=== PATIENT | female | born 1940 | race Caucasian/White ===

== ENCOUNTER → 2017-10-03 | Day surgery (SDC) | payer MEDICARE, BC ==
[2017-10-01 09:51] VITALS: BMI 28.8
[~2017-10-03] MED LIST: LACTATED RINGERS 1,000 ML IV SCH; LIDOCAINE 1% INJ 10MG/ML (20 ML MDV) ONE; PROPOFOL 10 MG/ML 20 ML VIAL IV ONE
[2017-10-03 08:13] VITALS: RESP 16; TEMP 97
--- NOTE | 2017-10-03 09:25 | P.GSHP ---
History of Present Illness H&P Date: 10/03/17 Chief Complaint: Dysphagia, GERD This a 77-year-old female who presents today for EGD. She's had complaints of dysphagia and GERD. Past Medical History Past Medical History: Atrial Fibrillation, Eye Disorder, GERD/Reflux, Hypertension, Osteoarthritis (OA) Additional Past Medical History / Comment(s): IBS, bilateral macular degeneration. History of Any Multi-Drug Resistant Organisms: None Reported Past Surgical History: Appendectomy, Back Surgery, Breast Surgery, Cholecystectomy, Hysterectomy, Orthopedic Surgery Additional Past Surgical History / Comment(s): ORIF LEFT ANKLE Past Anesthesia/Blood Transfusion Reactions: No Reported Reaction Past Psychological History: Anxiety Smoking Status: Former smoker Past Alcohol Use History: None Reported Additional Past Alcohol Use History / Comment(s): Quit smoking 50 yrs ago, smoked for 20 yrs. Past Drug Use History: None Reported - Past Family History Mother Family Medical History: Coronary Artery Disease (CAD) Brother(s) Family Medical History: Cancer Medications and Allergies Home Medications Medication Instructions Recorded Confirmed Type Apixaban [Eliquis] 5 mg PO BID 02/14/16 10/01/17 History C,E,Zinc,Copper 11/Qcunc4i/Lut 1 each PO DAILY 10/01/17 10/01/17 History [Ocuvite Adult 50 Plus Softgel] Cholecalciferol (Vitamin D3) 2,000 unit PO DAILY 10/01/17 10/01/17 History [Vitamin D3] Metoprolol Tartrate 25 mg PO BID 10/01/17 10/03/17 History Multivit-Min/Iron/Folic/Lutein 1 each PO DAILY 10/01/17 10/01/17 History [Centrum Silver Women Tablet] Omeprazole 20 mg PO BID 10/01/17 10/01/17 History Triamterene/Hydrochlorothiazid 1 each PO QAM 10/01/17 10/01/17 History [Triamterene-Hctz 37.5-25 mg Tb] Allergies Allergy/AdvReac Type Severity Reaction Status Date / Time meperidine HCl [From Demerol] Allergy Unknown Verified 10/03/17 08:08 ciprofloxacin AdvReac Nausea & Verified 10/03/17 08:08 Vomiting codeine AdvReac Nausea & Verified 10/03/17 08:08 Vomiting Surgical - Exam Vital Signs Temp Pulse Resp BP Pulse Ox 97.0 F L 84 16 169/94 97 10/03/17 08:12 10/03/17 08:12 10/03/17 08:12 10/03/17 08:12 10/03/17 08:12 - General well developed, no distress - Eyes PERRL - ENT normal pinna - Neck no masses - Respiratory normal expansion - Cardiovascular Rhythm: regular - Abdomen Abdomen: soft, non tender Assessment and Plan Assessment: GERD, dysphagia. We'll perform EGD
--- NOTE | 2017-10-03 09:43 | P.OP ---
Date of Procedure: 10/03/17 Preoperative Diagnosis: Dysphagia GERD Postoperative Diagnosis: Gastroparesis Mild antral gastritis Esophagitis Procedure(s) Performed: EGD Anesthesia: MAC Surgeon: Corbin Medrano Pathology: other (Antrum, esophagus) Condition: stable Disposition: PACU Description of Procedure: The patient's placed on the endoscopy table in the lateral position. She received IV sedation. The gastric was placed oropharynx and esophagus. Scope was then placed and stomach. There was a large amount of retained food in the stomach. Scope was then placed through the pylorus. The first and second portion of the duodenum appeared normal. Scope was then brought back the antrum and this was mildly inflamed. A biopsies performed. Scope was then retroflexed and the remainder of the stomach appeared normal. However there is a large amount of food in the fundus the stomach. There did not appear to be a significant hiatal hernia. The GE junction was at 39 cm. The distal esophagus was mildly inflamed a biopsies performed. The proximal esophagus appeared normal. Scope was withdrawn for patient.
[2017-10-03 10:07] VITALS: BP 136/80; PULSE 86
== END ==
LOC: ORWHC2ENDO 07:54
PROVIDERS: ATTEND Surgery
DX: K29.50 Unspecified chronic gastritis without bleeding (principal); K31.84 Gastroparesis; K21.0 Gastro-esophageal reflux disease with esophagitis; I48.91 Unspecified atrial fibrillation; H35.30 Unspecified macular degeneration; I10 Essential (primary) hypertension; M19.90 Unspecified osteoarthritis, unspecified site; K58.9 Irritable bowel syndrome, unspecified; F41.9 Anxiety disorder, unspecified; I25.10 Atherosclerotic heart disease of native coronary artery without angina pectoris; Z79.01 Long term (current) use of anticoagulants; Z79.899 Other long term (current) drug therapy; Z88.5 Allergy status to narcotic agent; Z87.891 Personal history of nicotine dependence
CPT/HCPCS: 88305; 43239; J2001; J2704

== ENCOUNTER → 2017-10-07 | Outpatient (CLI) | payer MEDICARE, BC ==
[2017-10-07 11:25] VITALS: RESP 18
--- NOTE | 2017-10-07 11:49 | FL ---
EXAMINATION TYPE: FL UGI DATE OF EXAM: 10/07/2017 COMPARISON: NONE HISTORY: 77-year-old female complains of dysphagia. Order history states gastroparesis. Patient with endoscopy performed 4 days ago, biopsies taken from the esophagus and gastric antrum. TECHNIQUE: A double contrast UGI study is performed. FINDINGS: During the initial swallows, there is incidental silent aspiration noted into the upper trachea. The esophagus has a normal course, caliber, and mucosa. There is mild tertiary peristaltic contractio ns. No fixed narrowing or mucosal lesion is seen. A small sliding hiatal hernia is noted on the supine views. The exam was prematurely terminated as the patient began complaining of hoarseness and a choking se nsation. The patient was monitored and observed by the radiology nurse and discharged from medical im aging with stable and normal vital signs. Patient declined ER evaluation. The limited LPO and supine views of the stomach show no gross abnormality. Suspect a small diverticul um of the second portion of the duodenum. IMPRESSION: 1. Incidental silent aspiration to the the level of the upper trachea. Consider speech pathology eval uation. 2. No stricture or mucosal lesion seen within the esophagus. 3. Small sliding hiatal hernia. 4. Note that the exam was prematurely terminated when the patient began complaining of hoarseness and a choking sensation. See above. 5. No obvious abnormality seen on the limited two views of the stomach.
[2017-10-07 13:56] VITALS: BP 144/88; PULSE 82
== END | disposition home or self-care (01) ==
LOC: RADFLMAIN 09:53
PROVIDERS: ATTEND Surgery
DX: K44.9 Diaphragmatic hernia without obstruction or gangrene (principal)
CPT/HCPCS: 74240

== ENCOUNTER → 2021-04-11 | Outpatient (CLI) | payer MEDICARE, BC ==
--- NOTE | 2021-04-12 09:31 | ECHOF ---
Referral Reason:M79.89 swelling of lower extremity MEASUREMENTS -------- HEIGHT: 162.6 cm WEIGHT: 76.2 kg BP: RVIDd: 2.5 cm (< 3.3) IVSd: 0.9 cm (0.6 - 1.1) LVIDd: 3.9 cm (3.9 - 5.3) LVPWd: 1.1 cm (0.6 - 1.1) IVSs: 1.3 cm LVIDs: 2.5 cm LVPWs: 1.4 cm LAESV Index (A-L): 45.71 ml/m Ao Diam: 2.8 cm (2.0 - 3.7) AV Cusp: 2.0 cm (1.5 - 2.6) LA Diam: 3.9 cm (2.7 - 3.8) MV EXCURSION: 19.089 mm (> 18.000) MV EF SLOPE: 113 mm/s (70 - 150) EPSS: 1.1 cm MV E Kali: 1.25 m/s MV DecT: 217 ms MV A Kali: 0.31 m/s MV E/A Ratio: 3.99 RAP: 5.00 mmHg RVSP: 41.00 mmHg FINDINGS -------- This was a technically good study. The left ventricular size is normal. There is mild concentric left ventricular hypertrophy. Overa ll left ventricular systolic function is low-normal with, an EF between 50 - 55 %. Increased LAP Gr apolinar 2 Diastolic Dysfunction. The right ventricle is normal in size. LA is severely dilated >40 ml/m2 RA appears enlarged. The aortic valve is trileaflet and appears structurally normal. The mitral valve is normal. Moderate mitral regurgitation is present. The tricuspid valve appears structurally normal. Mild tricuspid regurgitation present. There is m ild pulmonary hypertension. The right ventricular systolic pressure, as measured by Doppler, is 41. 00mmHg. There is no pulmonic regurgitation present. The aortic root size is normal. Normal inferior vena cava with normal inspiratory collapse consistent with estimated right atrial pre ssure of 5 mmHg. There is no pericardial effusion. CONCLUSIONS -------- 1. The left ventricular size is normal. 2. There is mild concentric left ventricular hypertrophy. 3. Overall left ventricular systolic function is low-normal with, an EF between 50 - 55 %. 4. Increased LAP Grade 2 Diastolic Dysfunction. 5. LA is severely dilated >40 ml/m2 6. Moderate mitral regurgitation is present. 7. Mild tricuspid regurgitation present. 8. There is mild pulmonary hypertension. 9. The right ventricular systolic pressure, as measured by Doppler, is 41.00mmHg. 10. There is no pericardial effusion. MICROSTRATEGY DEVELOPER: Cherise Wisdom RDCS
== END | disposition home or self-care (01) ==
LOC: RADECHMAIN 13:37
PROVIDERS: ATTEND Internal Medicine
DX: I08.1 Rheumatic disorders of both mitral and tricuspid valves (principal); I27.20 Pulmonary hypertension, unspecified
CPT/HCPCS: 93306

== ENCOUNTER → 2021-11-27 | Outpatient (CLI) | payer MEDICARE, BC ==
--- NOTE | 2021-11-27 15:20 | NM ---
EXAMINATION TYPE: NM parathyroid w/spect DATE OF EXAM: 11/27/2021 COMPARISON: None HISTORY: Hypercalcemia TECHNIQUE: Following administration of 24.8 mCi Tc99m Sestamibi. Anterior projection images of the neck and ches t were obtained 10 minutes and 3 hours post injection. SPECT images of the neck and chest were obtai lisa and reconstructed in three axes. FINDINGS: Parathyroid uptake: The two-hour delayed images demonstrate abnormal persistent uptake in the region of the thyroid bed greater on the left to suggest parathyroid adenoma. Normal uptake: There is physiological tracer uptake in the myocardium, liver, salivary glands, and th yroid gland. IMPRESSION: Bilateral residual radiotracer delayed imaging. Recommend correlation with ultrasound or CT neck to a ssess parathyroid adenoma
== END | disposition home or self-care (01) ==
LOC: RADNMMAIN 10:39
PROVIDERS: ATTEND Surgery
DX: D35.1 Benign neoplasm of parathyroid gland (principal)
CPT/HCPCS: 78071; A9500

== ENCOUNTER → 2021-12-04 | Outpatient (CLI) | payer MEDICARE, BC ==
--- NOTE | 2021-12-04 16:00 | US ---
EXAMINATION TYPE: US thyroid st tissue head/neck DATE OF EXAM: 12/04/2021 COMPARISON: NONE CLINICAL HISTORY: 81-year-old female D35.1 Benign neoplasm of parathyroid gland. TECHNIQUE: Multiple sonographic images of the thyroid gland are obtained. FINDINGS: GLAND SIZE: Right Lobe: 3.8 x 1.6 x 1.2 cm Overall Parenchyma: Mildly heterogenous Left Lobe: 4.0 x 1.3 x 1.6 cm Overall Parenchyma: Mildly heterogeneous Isthmus Thickness: 0.2 cm NODULES RIGHT: # of nodules measured on right: 0 LEFT: # of nodules measured on left: 2 1. 1.0 X 0.7 x 1.0 cm, posterior mid , solid or almost completely solid, mixed isoechoic and hypoec hoic nodule, which is wider than tall, with smooth margins, without echogenic foci. Prior size: no prior 2. 1.8 X 0.9 x 1.4 cm, lower , solid or almost completely solid, isoechoic nodule, which is wider than tall, with ill-defined margins, without echogenic foci. Prior size: no prior ISTHMUS: # of nodules measured in the isthmus: no Bilateral neck scanned: Small 8 x 8 x 5 mm lymph node adjacent to the left lobe of the thyroid gland. IMPRESSION: There are 2 solid thyroid nodules on the left. The smaller is a 1.0 cm TR4 nodule (FNA if it reaches 1.5 cm) and the larger is a 1.8 cm TR3 nodule (FNA if it reaches 2.5 cm). There is also a small 8 mm lymph node on the left adjacent to the thyroid gland.
== END | disposition home or self-care (01) ==
LOC: RADUSWWP 12:30
PROVIDERS: ATTEND Surgery
DX: E04.1 Nontoxic single thyroid nodule (principal)
CPT/HCPCS: 76536

== ENCOUNTER 2022-01-10 07:12 | Day surgery (SDC) | payer MEDICARE, BC ==
[2022-01-08 10:41] VITALS: BMI 27.1
[~2022-01-10 07:12] MED LIST changes: +ACETAMINOPHEN TAB 500 MG TAB PO PRN; +DEXAMETHASONE SOD PHOSPHATE 4 MG/ML 1 ML VIAL IV ONE; +HEPARIN SODIUM,PORCINE/PF 5,000 UNIT/0.5 ML SYRINGE SQ PRN; -LACTATED RINGERS 1,000 ML IV SCH; -LIDOCAINE 1% INJ 10MG/ML (20 ML MDV) ONE; +ONDANSETRON 4 MG/2 ML VIAL IVP ONE; -PROPOFOL 10 MG/ML 20 ML VIAL IV ONE; +Pre Op ABX Message 1 EACH MISC MISCELLANE ONE
[2022-01-10] MEDS: LACTATED RINGERS 1,000 ML IV SCH ×2 (08:12→20:39)
[2022-01-10] MEDS ORDERED: PROPOFOL 10 MG/ML 20 ML VIAL IV ONE (08:30)
[2022-01-10] MEDS ORDERED: hydrALAZINE HCL 20 MG/ML 1 ML VIAL ONE (08:30)
[2022-01-10] MEDS ORDERED: fentaNYL (PF) 50 MCG/ML 2 ML AMP ONE (08:30)
[2022-01-10] MEDS ORDERED: SUCCINYLCHOLINE CHLORIDE 200 MG/10 ML VIAL IV ONE (08:30)
[2022-01-10] MEDS ORDERED: LIDOCAINE 2% INJ 20 MG/ML (2 ML VIAL) ONE (08:30)
[2022-01-10] MEDS ORDERED: ePHEDrine 50 MG/ML 1 ML VIAL ONE (08:30)
[2022-01-10] MEDS ORDERED: SODIUM CHLORIDE 0.9% 50 ML with ceFAZolin 2,000 MG IV ONE ×2 (08:35)
[2022-01-10 08:36] LABS: Basophils % (A) 1 %; Eosinophils # (A) 0.1 k/uL (0-0.7); Eosinophils % (A) 1 %; HCT 44.5 % (34.0-46.0); HGB 14.9 gm/dL (11.4-16.0); Lymphocytes # (A) 1.5 k/uL (1.0-4.8); Lymphocytes % (A) 25 %; MCH 33.1 pg (25.0-35.0); MCHC 33.6 g/dL (31.0-37.0); MCV 98.5 fL (80.0-100.0); Mean Platelet Volume 7.9; Monocytes # (A) 0.4 k/uL (0-1.0); Monocytes % (A) 6 %; Neutrophils # (A) 3.7 k/uL (1.3-7.7); Neutrophils % (A) 65 %; Platelet Count 202 k/uL (150-450); RBC 4.52 m/uL (3.80-5.40); RDW 12.7 % (11.5-15.5); WBC 5.7 k/uL (3.8-10.6)
[2022-01-10 08:39] LABS: ALT 21 U/L (4-34); AST 34 U/L (14-36); African American GFR (CKD) >90 (>60 ml/min/1.73 sqM); Albumin 4.6 g/dL (3.5-5.0); Alkaline Phosphatase 139 U/L (38-126); Anion Gap 9 mmol/L; Blood Urea Nitrogen 15 mg/dL (7-17); Carbon Dioxide 32 mmol/L (22-30); Chloride 92 mmol/L (98-107); Glucose 123 mg/dL (74-99); Non-African American GFR(CKD) 89 (>60 ml/min/1.73 sqM); Potassium 3.6 mmol/L (3.5-5.1); Sodium 133 mmol/L (137-145)
--- NOTE | 2022-01-10 08:40 | P.GSHP ---
History of Present Illness H&P Date: 01/10/22 Chief Complaint: Parathyroid adenoma This 81-year-old female who presents today for excision of parathyroid adenoma. Patient's had increased calcium levels. Her recent parathyroid scan suggestive of a left parathyroid adenoma. Patient aware the risks of surgery including possible recurrent laryngeal nerve injury, and inability to find parathyroid gland. Past Medical History Past Medical History: Atrial Fibrillation, Eye Disorder, GERD/Reflux, Hypertension, Osteoarthritis (OA) Additional Past Medical History / Comment(s): IBS, bilateral macular degeneration. History of Any Multi-Drug Resistant Organisms: None Reported Past Surgical History: Appendectomy, Back Surgery, Breast Surgery, Cholecystectomy, Hysterectomy, Joint Replacement, Orthopedic Surgery Additional Past Surgical History / Comment(s): ORIF LEFT ANKLE. BREAST BX. RIGHT KNEE REPL. Past Anesthesia/Blood Transfusion Reactions: Postoperative Nausea & Vomiting (PONV) Past Psychological History: Anxiety Smoking Status: Former smoker Past Alcohol Use History: None Reported Additional Past Alcohol Use History / Comment(s): Quit smoking 50 yrs ago, smoked for 20 yrs. Past Drug Use History: None Reported - Past Family History Mother Family Medical History: Coronary Artery Disease (CAD) Brother(s) Family Medical History: Cancer Medications and Allergies Home Medications Medication Instructions Recorded Confirmed Type Apixaban [Eliquis] 5 mg PO BID 02/14/16 01/08/22 History Cholecalciferol (Vitamin D3) 2,000 unit PO DAILY 10/01/17 01/08/22 History [Vitamin D3] Metoprolol Tartrate 25 mg PO BID 10/01/17 01/08/22 History Omeprazole 40 mg PO DAILY 10/01/17 01/08/22 History Chlorthalidone [Hygroton] 25 mg PO DAILY 01/08/22 01/08/22 History Multivitamins, Thera [Multivitamin 1 tab PO DAILY 01/08/22 01/08/22 History (formulary)] Nf-Ibgard 1 tab PO DAILY 01/08/22 01/08/22 History Potassium Chloride 10 meq PO DAILY 01/08/22 01/08/22 History Vit C/E/Zn/Coppr/Lutein/Zeaxan 2 each PO DAILY 01/08/22 01/08/22 History [Preservision Areds 2 Softgel] Allergies Allergy/AdvReac Type Severity Reaction Status Date / Time meperidine HCl [From Demerol] Allergy Unknown Verified 01/08/22 10:22 ciprofloxacin AdvReac Nausea & Verified 01/08/22 10:22 Vomiting codeine AdvReac Nausea & Verified 01/08/22 10:22 Vomiting Surgical - Exam Vital Signs Temp Pulse Resp BP Pulse Ox 98.3 F 78 20 183/94 98 01/10/22 07:42 01/10/22 07:42 01/10/22 07:42 01/10/22 07:42 01/10/22 07:42 - General well developed, well nourished, no distress - Eyes PERRL - ENT normal pinna, normal nares, normal mucosa - Neck no masses - Respiratory normal expansion - Cardiovascular Rhythm: regular - Abdomen Abdomen: soft, non tender Results - Labs 01/10/22 08:17 Assessment and Plan Assessment: Parathyroid adenoma. We'll perform excision.
[2022-01-10] MEDS ORDERED: SODIUM CHLORIDE 0.9% 1,000 ML IV ONE (09:13)
[2022-01-10] MEDS ORDERED: oxyCODONE-APAP 5-325MG 1 EACH TAB PO PRN (10:25)
[2022-01-10] MEDS ORDERED: HYDROmorphone 0.5 MG/0.5 ML SYRINGE IVP PRN (10:25)
[2022-01-10] MEDS ORDERED: ACETAMINOPHEN TAB 325 MG TAB PO PRN (10:25)
[2022-01-10] MEDS ORDERED: LACTATED RINGERS 1,000 ML IV ONE (10:25)
[2022-01-10] MEDS ORDERED: ONDANSETRON 4 MG/2 ML VIAL IVP PRN (10:25)
[2022-01-10] MEDS ORDERED: NALOXONE 0.4 MG/ML 1 ML VIAL IV PRN (10:25)
--- NOTE | 2022-01-10 10:25 | P.OP ---
Date of Procedure: 01/10/22 Preoperative Diagnosis: Left lower parathyroid adenoma Postoperative Diagnosis: Left lower parathyroid adenoma Right and left lower thyroid nodule Procedure(s) Performed: Excision of left lower parathyroid adenoma Excision of right lower thyroid nodule Excision of left lower thyroid nodule Anesthesia: JOE Surgeon: Corbin Medrano Estimated Blood Loss (ml): 10 Pathology: other (Parathyroid, thyroid nodules) Condition: stable Disposition: PACU Description of Procedure: The patient's placed on the operative table in the supine position. She received general endotracheal anesthesia. Her neck was prepped and draped usual sterile fashion. Standard Cresson incision was made over the lower neck approximately 2 cm above the sternal notch. The distal flaps were elevated using electrocautery. The Gelpi retractors placed a wound. The strap muscle divided midline. The left thyroid gland was exposed. The patient's previous parathyroid scan showed evidence of a left lower parathyroid adenoma. At the inferior portion of the left thyroid gland the parathyroid gland was identified. It was slightly enlarged. The parathyroid gland was dissected free using Harmonic scissors and sent to pathology for frozen section. There was also a thyroid nodule that was suspicious looking in the left lower thyroid. This was next to the parathyroid gland. This was dissected free and sent to pathology. It was dissected using using Harmonic scissors. The area was examined closely for any other parathyroid adenomas. The thyroid was retracted and the tracheoesophageal groove was inspected. And then the superior parathyroid gland was visualized. This appeared to be normal in size. Some fatty tissue that was suspicious for containing a lymph node was also sent from the left lower thyroid area. Next the right thyroid was examined. In the inferior portion of the right thyroid gland there was a nodule seen. It was suspicious. It was unsure if this was parathyroid. The nodule was dissected free using Harmonic scissors and sent for frozen section. The right superior parathyroid gland was identified there is no evidence of any other parathyroid adenoma. The specimens had been sent for frozen section. Dr. Gurrola identified the first specimen as hypercellular parathyroid the 2 subsequent nodules were identified as thyroid nodule. The wound was checked for hemostasis. There is no bleeding seen. The strap muscles reapproximated using 3-0 Vicryl. The platysma was closed using 3-0 Vicryl. The skin was closed interrupted 3-0 Monocryl suture. Dermabond was applied. Patient top she will was sent to recovery room in stable condition.
[2022-01-10] MEDS: HYDROmorphone 0.5 MG/0.5 ML SYRINGE IVP PRN ×2 (10:28→10:55)
[2022-01-10 11:43] LABS: Glucose,Whole Blood 142 mg/dL (70-110)
--- NOTE | 2022-01-10 12:07 | P.CONS ---
History of Present Illness - Reason for Consult Consult date: 01/10/22 Medical Management Requesting physician: Corbin Medrano - History of Present Illness History of Presenting Illness: Patient is a very pleasant 81-year-old female with a past medical history of hypertension, GERD, macular degeneration and atrial fibrillation on anticoagulation with Eliquis which has been held prior to surgery. Patient is currently admitted under Gen. surgery team status post excision of parathyroid adenoma. We have been consulted for medical management throughout patient's hospitalization. Patient was seen and fully evaluated at bedside upon arrival to room 483 from operating room. Upon patient's transfer from OR stretcher to bed patient had noted tremors in bilateral upper extremities with no other neurological deficits noted. These asymptomatic tremors are believed to be resulting from general anesthesia. CBC and CMP reviewed showing no significant abnormalities with the exception of mild hyponatremia with sodium of 133. Postoperative calcium 10.4. Patient alert and oriented to person, place, time, and situation. She denied having any complaints at this time including headache, lightheadedness, dizziness, chest pain, palpitations, shortness of breath, or experiencing any numbness/tingling/weakness in her extremities. Patient is swallowing and maintaining airway without any difficulties. Patient's family members at bedside. Review of systems: Pertinent positives and negatives as discussed in HPI, a complete review of systems was performed and all other systems are negative. Physical exam: Vital signs reviewed and stable. General: Nontoxic, no distress and appears stated age. Derm: Skin warm and dry, normal coloration for ethnicity. Head: Atraumatic, normocephalic and symmetric. Dressing in place midline anterior neck, clean dry and intact. Eyes: EOMs intact, no lid lag, and anicteric sclera Mouth: no lip lesions, mucus membranes moist Cardiovascular Irregularly irregular with normal S1S2, systolic murmur, positive posterior tibial pulses bilaterally, and cap refill < 2 seconds. Lungs: Respirations even, regular, and unlabored on room air. Lungs CTA bilaterally, no rhonchi, no rales, no wheezing, and no accessory muscle usage. Abdominal: soft, nontender to palpation, no guarding, no appreciable org anomegaly Ext: ROM intact. No gross muscle atrophy, no edema, no contractures Neuro: Speech clear, face symmetrical and CN II-XII grossly intact with no noted focal neuro deficits Psych: Alert and oriented to person, place, time, and situation. Appropriate and pleasant affect. Assessment and Plan of Care: Status post excision of left lower parathyroid adenoma and right lower thyroid nodule -Management per primary admitting general surgery team. -Monitor calcium levels and CBC. -Maintain aspiration precautions. -RN communication order placed to maintain wall suction in room. -Provide safe and supportive care. Postanesthesia tremors -Commonly occur after general anesthesia. Monitor vital signs including temperature, with no further orders at this time. Chronic persistent Atrial fibrillation -Recommend resuming anticoagulation with Eliquis once cleared to resume by primary admitting general surgery team. Hypertension -Monitor vital signs and continue daily medication regimen with chlorthalidone and metoprolol. GERD -GI prophylaxis with Protonix 40 mg IVP daily. Thank you for allowing us to participate in the care of this pleasant patient. Do not hesitate to contact us with questions. Someone can be reached from the [facility] hospitalist group all hours of the day at [phone] or via [employer].. Past Medical History Past Medical History: Atrial Fibrillation, Eye Disorder, GERD/Reflux, Hypertension, Osteoarthritis (OA) Additional Past Medical History / Comment(s): IBS, bilateral macular degeneration. History of Any Multi-Drug Resistant Organisms: None Reported Past Surgical History: Appendectomy, Back Surgery, Breast Surgery, Cholecystectomy, Hysterectomy, Joint Replacement, Orthopedic Surgery Additional Past Surgical History / Comment(s): ORIF LEFT ANKLE. BREAST BX. RIGHT KNEE REPL. Past Anesthesia/Blood Transfusion Reactions: Postoperative Nausea & Vomiting (PONV) Past Psychological History: Anxiety Smoking Status: Former smoker Past Alcohol Use History: None Reported Additional Past Alcohol Use History / Comment(s): Quit smoking 50 yrs ago, smoked for 20 yrs. Past Drug Use History: None Reported - Past Family History Mother Family Medical History: Coronary Artery Disease (CAD) Brother(s) Family Medical History: Cancer Medications and Allergies Home Medications Medication Instructions Recorded Confirmed Type Apixaban [Eliquis] 5 mg PO BID 02/14/16 01/08/22 History Cholecalciferol (Vitamin D3) 2,000 unit PO DAILY 10/01/17 01/08/22 History [Vitamin D3] Metoprolol Tartrate 25 mg PO BID 10/01/17 01/08/22 History Omeprazole 40 mg PO DAILY 10/01/17 01/08/22 History Chlorthalidone [Hygroton] 25 mg PO DAILY 01/08/22 01/08/22 History Multivitamins, Thera [Multivitamin 1 tab PO DAILY 01/08/22 01/08/22 History (formulary)] Nf-Ibgard 1 tab PO DAILY 01/08/22 01/08/22 History Potassium Chloride 10 meq PO DAILY 01/08/22 01/08/22 History Vit C/E/Zn/Coppr/Lutein/Zeaxan 2 each PO DAILY 01/08/22 01/08/22 History [Preservision Areds 2 Softgel] Allergies Allergy/AdvReac Type Severity Reaction Status Date / Time meperidine HCl [From Demerol] Allergy Unknown Verified 01/08/22 10:22 ciprofloxacin AdvReac Nausea & Verified 01/08/22 10:22 Vomiting codeine AdvReac Nausea & Verified 01/08/22 10:22 Vomiting Physical Exam Vitals: Vital Signs Temp Pulse Pulse Resp BP BP Pulse Ox 01/10/22 11:18 80 16 159/74 99 01/10/22 11:03 75 16 145/79 99 01/10/22 10:48 71 16 160/88 99 01/10/22 10:33 69 16 164/77 99 01/10/22 10:18 97.5 F L 68 14 181/93 100 01/10/22 07:42 98.3 F 78 20 183/94 98 Intake and Output 01/09/22 01/10/22 01/10/22 22:59 06:59 14:59 Intake Total 1300 Output Total 50 Balance 1250 Intake: IV 1300 Output: Estimated Blood Loss 50 Other: Weight 75.4 kg Results CBC & Chem 7: 01/10/22 08:17 01/10/22 08:17 Labs: Abnormal Lab Results - Last 24 Hours (Table) 01/10/22 01/10/22 Range/Units 08:17 11:41 Sodium 133 L (137-145) mmol/L Chloride 92 L (98-107) mmol/L Carbon Dioxide 32 H (22-30) mmol/L Glucose 123 H (74-99) mg/dL POC Glucose (mg/dL) 142 H (70-110) mg/dL Calcium 11.0 H (8.4-10.2) mg/dL Alkaline Phosphatase 139 H (38-126) U/L
[2022-01-10] MEDS ORDERED: PROCHLORPERAZINE INJ 10 MG/2 ML VIAL IVP PRN (17:02)
[2022-01-10] MEDS: PANTOPRAZOLE 40 MG/10 ML VIAL IVP SCH (20:37)
[2022-01-10] MEDS: DOCUSATE 100 MG CAP PO SCH (20:38)
[2022-01-10] MEDS: METOPROLOL TARTRATE 25 MG TAB PO SCH (20:38)
[2022-01-11 08:08] VITALS: BP 125/68; PULSE 62; RESP 18; TEMP 97.9
[2022-01-11] MEDS ORDERED: ENOXAPARIN 30 MG/0.3 ML SYRINGE SQ SCH (09:00)
[2022-01-11] MEDS ORDERED: CHLORTHALIDONE 25 MG TAB PO SCH (09:00)
[2022-01-11] MEDS: DOCUSATE 100 MG CAP PO SCH (09:55)
[2022-01-11] MEDS: PANTOPRAZOLE 40 MG/10 ML VIAL IVP SCH (09:56)
[2022-01-11] MEDS: METOPROLOL TARTRATE 25 MG TAB PO SCH (09:56)
[2022-01-11 10:45] LABS: HCT 35.4 % (37.2-46.3); HGB 12.3 g/dL (12.0-15.0); MCH 32.9 pg (27.0-32.0); MCHC 34.7 g/dL (32.0-37.0); MCV 94.7 fL (80.0-97.0); Mean Platelet Volume 10.9 fL (9.5-12.2); NRBC Per 100 WBC 0 /100 WBCS (0.0-0.0); Platelet Count 169 X 10*3/uL (140-440); RBC 3.74 X 10*6/uL (4.10-5.20); RDW 12.8 % (11.5-14.5)
[2022-01-11 11:12] LABS: African American GFR (CKD) 103.7 (60.0-200.0); Albumin 3.7 g/dL (3.8-4.9); Albumin/Globulin Ratio 2.06 (1.60-3.17); Anion Gap 8.8 mmol/L (10.00-18.00); BUN/Creat Ratio 28.6 Ratio (12.00-20.00); Blood Urea Nitrogen 14.3 mg/dL (9.0-27.0); Calcium 10.1 mg/dL (8.7-10.3); Carbon Dioxide 31.2 mmol/L (20.0-27.5); Globulin 1.8 g/dL (1.6-3.3); Magnesium 1.6 mg/dL (1.5-2.4); Non-African American GFR(CKD) 89.5 (60.0-200.0); Potassium 3.2 mmol/L (3.5-5.5); Total Bilirubin 0.7 mg/dL (0.30-1.20); Total Protein 5.5 g/dL (6.2-8.2)
[2022-01-11] MEDS ORDERED: POTASSIUM CHLORIDE ER 20 MEQ TAB.ER PO STA (13:12)
--- NOTE | 2022-01-11 13:22 | P.DS ---
Providers Expected date of discharge: 01/11/22 Attending physician: Corbin Medrano Consults: 01/10/22 10:25 Consult Physician Routine Consulting Provider: Milvia Leal Consult Reason/Comments: Medical management Do you want consulting provider notified?: Yes Primary care physician: Yonas Ramirez MD Hospital Course: Discharge diagnosis 1. Left lower parathyroid adenoma, Right and left lower thyroid nodule status post Excision of left lower parathyroid adenoma, Excision of right lower thyroid nodule and Excision of left lower thyroid nodule Hospital course This is a 81-year-old female with known parathyroid adenoma. She is status post Excision of left lower parathyroid adenoma, Excision of right lower thyroid nodule and Excision of left lower thyroid nodule. Patient reports that her pain is controlled. She is tolerating diet. Denies any hoarseness of the voice. She's afebrile. She's up and ambulating. She is stable for discharge. Patient will have her calcium level checked on Saturday. Prescription was given to patient. Please refer to chart for any further details. Physician Institutional Custodian note has been reviewed by physician. Signing provider agrees with the documented findings, assessment, and plan of care. Patient Condition at Discharge: Stable Plan - Discharge Summary Discharge Rx Participant: No New Discharge Prescriptions: New Acetaminophen Tab [Tylenol] 1,000 mg PO Q6HR PRN #30 tablet PRN Reason: Pain Continue Apixaban [Eliquis] 5 mg PO BID Metoprolol Tartrate 25 mg PO BID Omeprazole 40 mg PO DAILY Cholecalciferol (Vitamin D3) [Vitamin D3] 2,000 unit PO DAILY Multivitamins, Thera [Multivitamin (formulary)] 1 tab PO DAILY Nf-Ibgard 1 tab PO DAILY Vit C/E/Zn/Coppr/Lutein/Zeaxan [Preservision Areds 2 Softgel] 2 each PO DAILY Potassium Chloride 10 meq PO DAILY Chlorthalidone [Hygroton] 25 mg PO DAILY Discharge Medication List Apixaban [Eliquis] 5 mg PO BID 02/14/16 [History] Cholecalciferol (Vitamin D3) [Vitamin D3] 2,000 unit PO DAILY 10/01/17 [History] Metoprolol Tartrate 25 mg PO BID 10/01/17 [History] Omeprazole 40 mg PO DAILY 10/01/17 [History] Chlorthalidone [Hygroton] 25 mg PO DAILY 01/08/22 [History] Multivitamins, Thera [Multivitamin (formulary)] 1 tab PO DAILY 01/08/22 [History] Nf-Ibgard 1 tab PO DAILY 01/08/22 [History] Potassium Chloride 10 meq PO DAILY 01/08/22 [History] Vit C/E/Zn/Coppr/Lutein/Zeaxan [Preservision Areds 2 Softgel] 2 each PO DAILY 01/08/22 [History] Acetaminophen Tab [Tylenol] 1,000 mg PO Q6HR PRN #30 tablet 01/11/22 [Rx] Follow up Appointment(s)/Referral(s): Corbin Medrano MD [STAFF PHYSICIAN] - 1 Week Ambulatory/Diagnostic Orders: Miscellaneous Lab Order [LAB.AMB] Time Frame: 01/15/22, Location: None Selected Activity/Diet/Wound Care/Special Instructions: No lifting over 10 pounds You may shower. No soaking or tub baths for 2 weeks Very light activity until you are reevaluated at your follow up appointment with your surgeon Farshad Kaur tomorrow 01/12/22 Discharge Disposition: HOME SELF-CARE
--- NOTE | 2022-01-11 14:04 | P.PN ---
Subjective Progress Note Date: 01/11/22 History of Presenting Illness: Patient is a very pleasant 81-year-old female with a past medical history of hypertension, GERD, macular degeneration and atrial fibrillation on anticoag ulation with Eliquis which has been held prior to surgery. Patient is currently admitted under Gen. surgery team status post excision of parathyroid adenoma. We have been consulted for medical management throughout patient's hospitalization. Physical exam: Patient was seen and fully evaluated at bedside this morning. She was sitting up in chair and reports feeling great this morning. She denies having any problems swallowing or with oral intake. Postsurgical incision well approximated with mild bruising surrounding but no noted bleeding or drainage. Morning labs reviewed CBC unremarkable post surgical hemoglobin 12.3. Patient had resolution of previously noted hyponatremia and had mild hypokalemia with potassium of 3.2 and replaced.. Vital signs unremarkable this morning with blood pressure 125/68, heart rate 62, respiratory rate 18, and SpO2 of 96% on room air. Vital signs reviewed and stable. General: Nontoxic, no distress and appears stated age. Derm: Skin warm and dry, normal coloration for ethnicity. Head: Atraumatic, normocephalic and symmetric. Dressing in place midline anterior neck, clean dry and intact. Eyes: EOMs intact, no lid lag, and anicteric sclera Mouth: no lip lesions, mucus membranes moist Cardiovascular Irregularly irregular with normal S1S2, systolic murmur, positive posterior tibial pulses bilaterally, and cap refill < 2 seconds. Lungs: Respirations even, regular, and unlabored on room air. Lungs CTA bilaterally, no rhonchi, no rales, no wheezing, and no accessory muscle usage. Abdominal: soft, nontender to palpation, no guarding, no appreciable organomegaly Ext: ROM intact. No gross muscle atrophy, no edema, no contractures Neuro: Speech clear, face symmetrical and CN II-XII grossly intact with no noted focal neuro deficits Psych: Alert and oriented to person, place, time, and situation. Appropriate and pleasant affect. Assessment and Plan of Care: Status post excision of left lower parathyroid adenoma and right lower thyroid nodule -Management per primary admitting general surgery team. -Monitor calcium levels and CBC. -Maintain aspiration precautions. -RN communication order placed to maintain wall suction in room. -Provide safe and supportive care. Postanesthesia tremors, resolved. -Commonly occur after general anesthesia. Monitor vital signs including temperature, with no further orders at this time. -Patient monitored overnight and had no further episodes. Chronic persistent Atrial fibrillation -Recommend resuming anticoagulation with Eliquis once cleared to resume by primary admitting general surgery team. Hypertension -Monitor vital signs and continue daily medication regimen with chlorthalidone and metoprolol. GERD -GI prophylaxis with Protonix 40 mg IVP daily. Thank you for allowing us to participate in the care of this pleasant patient. Do not hesitate to contact us with questions. Someone can be reached from the [facility] hospitalist group all hours of the day at [phone] or via [employer] Objective - Vital Signs Vital signs: Vital Signs Temp 97.9 F 01/11/22 08:00 Pulse 62 01/11/22 08:00 Resp 18 01/11/22 08:00 BP 125/68 01/11/22 08:00 Pulse Ox 96 01/11/22 08:00 FiO2 Intake & Output 01/10/22 01/11/22 01/11/22 18:59 06:59 18:59 Intake Total 1300 360 Output Total 50 Balance 1250 360 Weight 75.4 kg Intake: IV 1300 Oral 360 Output: Estimated Blood Loss 50 Other: # Voids 1 4 1 - Labs CBC & Chem 7: 01/11/22 06:36 01/11/22 06:36 Labs: Abnormal Lab Results - Last 24 Hours (Table) 01/10/22 01/10/22 Range/Units 11:41 11:59 POC Glucose (mg/dL) 142 H (70-110) mg/dL Calcium 10.4 H (8.4-10.2) mg/dL
== END 2022-01-11 14:25 | disposition home or self-care (01) ==
LOC: OR 07:12 → 4SSUR 10:07 → OR 01-11 14:25
PROVIDERS: ATTEND Surgery
DX: D35.1 Benign neoplasm of parathyroid gland (principal); E04.1 Nontoxic single thyroid nodule; I48.91 Unspecified atrial fibrillation; K21.9 Gastro-esophageal reflux disease without esophagitis; I10 Essential (primary) hypertension; M19.90 Unspecified osteoarthritis, unspecified site; Z87.19 Personal history of other diseases of the digestive system; Z87.891 Personal history of nicotine dependence; Z88.6 Allergy status to analgesic agent; Z88.1 Allergy status to other antibiotic agents; Z88.5 Allergy status to narcotic agent; Z79.899 Other long term (current) drug therapy; Z79.891 Long term (current) use of opiate analgesic; Z20.822 Contact with and (suspected) exposure to COVID-19
CPT/HCPCS: 88305; 80053 ×2; 82310; 83735; 85025; 85027; 88331; 60500; 60200 ×2; J0780; J1100; J2405; J0690; J1650; C9113 ×2; J1170; J1644

== ENCOUNTER → 2022-01-15 | Outpatient (CLI) | payer MEDICARE, BC | END | disposition home or self-care (01) | LOC: LABWHC1 10:03 | PROVIDERS: ATTEND Physician Assistant | DX: Z00.00 Encounter for general adult medical examination without abnormal findings (principal); E83.52 Hypercalcemia | CPT/HCPCS: 36415; 82310 ==

== ENCOUNTER 2022-03-29 12:19 | Inpatient (IN) | payer MEDICARE, BC ==
[2022-03-29] MEDS ORDERED: SODIUM CHLORIDE 0.9% 500 ML 500 ML IV STA (12:51)
[2022-03-29] MEDS ORDERED: MECLIZINE 25 MG TAB PO STA (12:52)
[2022-03-29] MEDS ORDERED: METOCLOPRAMIDE 5 MG/ML 2 ML VIAL IVP STA (12:53)
[2022-03-29 13:28] LABS: Basophils # (A) 0.1 k/uL (0-0.2); Basophils % (A) 1 %; Eosinophils % (A) 0 %; HCT 39.5 % (34.0-46.0); Lymphocytes % (A) 16 %; MCH 33.7 pg (25.0-35.0); MCHC 35.4 g/dL (31.0-37.0); MCV 95.3 fL (80.0-100.0); Mean Platelet Volume 8.3; Monocytes # (A) 0.3 k/uL (0-1.0); Monocytes % (A) 4 %; Neutrophils # (A) 4.6 k/uL (1.3-7.7); Neutrophils % (A) 77 %; Platelet Count 170 k/uL (150-450); RBC 4.14 m/uL (3.80-5.40); RDW 12.1 % (11.5-15.5)
[2022-03-29 13:33] LABS: AST 30 U/L (14-36); African American GFR (CKD) >90 (>60 ml/min/1.73 sqM); Alkaline Phosphatase 126 U/L (38-126); Blood Urea Nitrogen 13 mg/dL (7-17); Calcium 9.8 mg/dL (8.4-10.2); Carbon Dioxide 28 mmol/L (22-30); Chloride 93 mmol/L (98-107); Glucose 138 mg/dL (74-99); Magnesium 1.6 mg/dL (1.6-2.3); Non-African American GFR(CKD) >90 (>60 ml/min/1.73 sqM); Total Bilirubin 0.9 mg/dL (0.2-1.3); Total Protein 6.4 g/dL (6.3-8.2)
[2022-03-29 13:36] LABS: Prothrombin Time 10.7 sec (9.0-12.0)
[2022-03-29 13:48] LABS: ALT 21 U/L (4-34); Anion Gap 7 mmol/L; Potassium 3.2 mmol/L (3.5-5.1); Sodium 128 mmol/L (137-145)
--- NOTE | 2022-03-29 14:00 | CT ---
EXAMINATION TYPE: CT brain wo con DATE OF EXAM: 03/29/2022 COMPARISON: None HISTORY: Dizziness and headache CT DLP: 1122.[address] of the brain was performed. The ventricles, basal cisterns and sulci overlying the cerebral convexities demonstrate mild enlargem ent. There is no evidence for intracranial hemorrhage or sulcal effacement. There is decreased attenuation about the periventricular white matter and deep white matter of both c erebral hemispheres, compatible with chronic small vessel ischemia. Differential diagnosis does inclu de demyelination. No mass effects are seen.No midline shift. Osseous calvarium is intact. If symptoms persist consider MRI. IMPRESSION: 1. Age related atrophic and chronic small vessel ischemic change without acute intracranial process s een at this time.
--- NOTE | 2022-03-29 14:06 | XR ---
EXAMINATION TYPE: XR chest 2V DATE OF EXAM: 03/29/2022 COMPARISON: 02/14/2016 HISTORY: 82-year-old female with weakness and chest pain TECHNIQUE: AP and lateral views FINDINGS: Heart mildly enlarged. Mild elongation/ectasia of the thoracic aorta. No consolidation or pleural eff usion. Accentuated lower thoracic kyphosis. IMPRESSION: Mild cardiomegaly. Hyperinflation may reflect underlying emphysema. Clinically correlate. Otherwise, no definite acute process.
[2022-03-29 15:01] LABS: Amorphous Sediment,Urine Rare /hpf; Appearance,Urine Cloudy (Clear); Bacteria,Urine Occasional /hpf; Bilirubin,Urine Negative (Negative); Blood,Urine Negative (Negative); Color,Urine Light Yellow; Glucose,Urine (UA) 1+ (Negative); Leukocyte Esterase,Urine Negative (Negative); Mucus,Urine Rare /hpf; Nitrite,Urine Negative (Negative); PH, Urine 7.5 (5.0-8.0); Protein,Urine Trace (Negative); RBC,Urine 1 /hpf (0-5); Specific Gravity,Urine 1.017 (1.001-1.035); Squamous Epithelial Cell,Urine 1 /hpf (0-4); Urobilinogen,Urine <2.0 mg/dL (<2.0); WBC,Urine 1 /hpf (0-5)
[2022-03-29 15:07] LABS: Ketones,Urine 2+ (Negative)
[2022-03-29] MEDS ORDERED: SODIUM CHLORIDE 0.9% 1,000 ML IV ONE (16:34)
--- NOTE | 2022-03-29 16:34 | ED ---
General Adult HPI - General Chief complaint: Weakness Stated complaint: Weakness Time Seen by Provider: 03/29/22 12:20 Source: patient, RN notes reviewed, old records reviewed Mode of arrival: EMS Limitations: no limitations - History of Present Illness Initial comments: This is an 82-year-old female presents emergency department stating that she has been dizzy since 1 AM. Patient states she feels like the room is spinning anytime she stands up or moves her head per patient states in particular she rolled over in bed the symptoms got considerably worse. Patient states became very nauseated and a little bit sweaty. He states a couple of times she had some chest tightness but no difficulty breathing shortness of breath per patient states she did get relief with shutting her eyes or focusing on one spot. Patient denies any recent fever chills or cough per patient denies any abdominal pain patient denies any actual vomiting or diarrhea. Patient denies any recent injury or trauma. Patient denies any similar symptoms in the past. - Related Data Home Medications Medication Instructions Recorded Confirmed Apixaban [Eliquis] 5 mg PO BID 02/14/16 03/29/22 Metoprolol Tartrate 25 mg PO BID 10/01/17 03/29/22 Omeprazole 40 mg PO AC-BRKFST 10/01/17 03/29/22 Chlorthalidone [Hygroton] 25 mg PO DAILY 01/08/22 03/29/22 Multivitamins, Thera [Multivitamin 1 tab PO DAILY 01/08/22 03/29/22 (formulary)] Nf-Ibgard 1 tab PO DAILY 01/08/22 03/29/22 Potassium Chloride 10 meq PO DAILY 01/08/22 03/29/22 Vit C/E/Zn/Coppr/Lutein/Zeaxan 1 tab PO BID 01/08/22 03/29/22 [Preservision Areds 2 Softgel] Cholecalciferol [Vitamin D3 (25 50 mcg PO DAILY 03/29/22 03/29/22 Mcg = 1000 Iu)] Multivit-Min/Iron/Folic/Lutein 1 tab PO DAILY 03/29/22 03/29/22 [Centrum Silver Women Tablet] Previous Rx's Medication Instructions Recorded Acetaminophen Tab [Tylenol] 1,000 mg PO Q6HR PRN #30 tablet 01/11/22 Allergies Allergy/AdvReac Type Severity Reaction Status Date / Time meperidine HCl [From Demerol] Allergy Unknown Verified 03/29/22 14:13 ciprofloxacin AdvReac Nausea & Verified 03/29/22 14:13 Vomiting codeine AdvReac Nausea & Verified 03/29/22 14:13 Vomiting Review of Systems ROS Statement: Those systems with pertinent positive or pertinent negative responses have been documented in the HPI. ROS Other: All systems not noted in ROS Statement are negative. Past Medical History Past Medical History: Atrial Fibrillation, Eye Disorder, GERD/Reflux, Hypertension, Osteoarthritis (OA) Additional Past Medical History / Comment(s): IBS, bilateral macular degeneration. History of Any Multi-Drug Resistant Organisms: None Reported Past Surgical History: Appendectomy, Back Surgery, Breast Surgery, Cholecystectomy, Hysterectomy, Joint Replacement, Orthopedic Surgery Additional Past Surgical History / Comment(s): ORIF LEFT ANKLE. BREAST BX. RIGHT KNEE REPL. Past Anesthesia/Blood Transfusion Reactions: Postoperative Nausea & Vomiting (PONV) Past Psychological History: Anxiety Smoking Status: Former smoker Past Alcohol Use History: None Reported Past Drug Use History: None Reported - Past Family History Mother Family Medical History: Coronary Artery Disease (CAD) Brother(s) Family Medical History: Cancer General Exam - General Exam Comments Initial Comments: GENERAL: Patient is well-developed and well-nourished. Patient is nontoxic and well- hydrated and is in mild distress. ENT: Neck is soft and supple. No significant lymphadenopathy is noted. Oropharynx is clear. Moist mucous membranes. Neck has full range of motion without eliciting any pain. EYES: The sclera were anicteric and conjunctiva were pink and moist. Extraocular movements were intact and pupils were equal round and reactive to light. Eyelids were unremarkable. PULMONARY: Unlabored respirations. Good breath sounds bilaterally. No audible rales rhonchi or wheezing was noted. CARDIOVASCULAR: There is a regular rate and rhythm without any murmurs gallops or rubs. ABDOMEN: Soft and nontender with normal bowel sounds. No palpable organomegaly was noted. There is no palpable pulsatile mass. SKIN: Skin is clear with no lesions or rashes and otherwise unremarkable. NEUROLOGIC: Patient is alert and oriented x3. Cranial nerves II through XII are grossly intact. Motor and sensory are also intact. Normal speech, volume and content. Symmetrical smile. Finger to nose testing bilaterally was normal MUSCULOSKELETAL: Normal extremities with adequate strength and full range of motion. No lower extremity swelling or edema. No calf tenderness. LYMPHATICS: No significant lymphadenopathy is noted PSYCHIATRIC: Normal psychiatric evaluation. Limitations: no limitations Course Vital Signs 03/29/22 03/29/22 12:21 14:40 Temperature 97.6 F Pulse Rate 73 61 Respiratory 18 18 Rate Blood Pressure 175/108 151/87 O2 Sat by Pulse 97 97 Oximetry Medical Decision Making - Medical Decision Making EKG was interpreted by me EKG showed atrial fibrillation at 80 bpm QRS is 92 QT interval 06/22/1989 QTC is 375. Patient's EKG shows no ST segment elevation or depression. CT of the brain was interpreted by me. Patient's CT of the brain showed no acute abnormality. Chest x-ray was interpreted by me. Chest x-ray showed no acute abnormality. Patient received Antivert in the emergency department as well as Reglan and Valium. Patient remained dizzy upon standing and was unable to go home safely so I spoke with Dr. Landis and he agreed to accept the patient. - Lab Data Result diagrams: 03/29/22 13:20 03/29/22 13:20 Lab Results 03/29/22 03/29/22 03/29/22 Range/Units 13:20 13:20 13:20 WBC 6.0 (3.8-10.6) k/uL RBC 4.14 (3.80-5.40) m/uL Hgb 14.0 (11.4-16.0) gm/dL Hct 39.5 (34.0-46.0) % MCV 95.3 (80.0-100.0) fL MCH 33.7 (25.0-35.0) pg MCHC 35.4 (31.0-37.0) g/dL RDW 12.1 (11.5-15.5) % Plt Count 170 (150-450) k/uL MPV 8.3 Neutrophils % 77 % Lymphocytes % 16 % Monocytes % 4 % Eosinophils % 0 % Basophils % 1 % Neutrophils # 4.6 (1.3-7.7) k/uL Lymphocytes # 1.0 (1.0-4.8) k/uL Monocytes # 0.3 (0-1.0) k/uL Eosinophils # 0.0 (0-0.7) k/uL Basophils # 0.1 (0-0.2) k/uL PT 10.7 (9.0-12.0) sec INR 1.0 (<1.2) APTT 23.0 (22.0-30.0) sec Sodium 128 L (137-145) mmol/L Potassium 3.2 L (3.5-5.1) mmol/L Chloride 93 L (98-107) mmol/L Carbon Dioxide 28 (22-30) mmol/L Anion Gap 7 mmol/L BUN 13 (7-17) mg/dL Creatinine 0.41 L (0.52-1.04) mg/dL Est GFR (CKD-EPI)AfAm >90 (>60 ml/min/1.73 sqM) Est GFR (CKD-EPI)NonAf >90 (>60 ml/min/1.73 sqM) Glucose 138 H (74-99) mg/dL Calcium 9.8 (8.4-10.2) mg/dL Magnesium 1.6 (1.6-2.3) mg/dL Total Bilirubin 0.9 (0.2-1.3) mg/dL AST 30 (14-36) U/L ALT 21 (4-34) U/L Alkaline Phosphatase 126 (38-126) U/L Troponin I (0.000-0.034) ng/mL Total Protein 6.4 (6.3-8.2) g/dL Albumin 4.0 (3.5-5.0) g/dL Urine Color Urine Appearance (Clear) Urine pH (5.0-8.0) Ur Specific Rose (1.001-1.035) Urine Protein (Negative) Urine Glucose (UA) (Negative) Urine Ketones (Negative) Urine Blood (Negative) Urine Nitrite (Negative) Urine Bilirubin (Negative) Urine Urobilinogen (<2.0) mg/dL Ur Leukocyte Esterase (Negative) Urine RBC (0-5) /hpf Urine WBC (0-5) /hpf Ur Squamous Epith Cells (0-4) /hpf Amorphous Sediment (None) /hpf Urine Bacteria (None) /hpf Urine Mucus (None) /hpf 03/29/22 03/29/22 Range/Units 13:20 14:42 WBC (3.8-10.6) k/uL RBC (3.80-5.40) m/uL Hgb (11.4-16.0) gm/dL Hct (34.0-46.0) % MCV (80.0-100.0) fL MCH (25.0-35.0) pg MCHC (31.0-37.0) g/dL RDW (11.5-15.5) % Plt Count (150-450) k/uL MPV Neutrophils % % Lymphocytes % % Monocytes % % Eosinophils % % Basophils % % Neutrophils # (1.3-7.7) k/uL Lymphocytes # (1.0-4.8) k/uL Monocytes # (0-1.0) k/uL Eosinophils # (0-0.7) k/uL Basophils # (0-0.2) k/uL PT (9.0-12.0) sec INR (<1.2) APTT (22.0-30.0) sec Sodium (137-145) mmol/L Potassium (3.5-5.1) mmol/L Chloride (98-107) mmol/L Carbon Dioxide (22-30) mmol/L Anion Gap mmol/L BUN (7-17) mg/dL Creatinine (0.52-1.04) mg/dL Est GFR (CKD-EPI)AfAm (>60 ml/min/1.73 sqM) Est GFR (CKD-EPI)NonAf (>60 ml/min/1.73 sqM) Glucose (74-99) mg/dL Calcium (8.4-10.2) mg/dL Magnesium (1.6-2.3) mg/dL Total Bilirubin (0.2-1.3) mg/dL AST (14-36) U/L ALT (4-34) U/L Alkaline Phosphatase (38-126) U/L Troponin I <0.012 (0.000-0.034) ng/mL Total Protein (6.3-8.2) g/dL Albumin (3.5-5.0) g/dL Urine Color Light Yellow Urine Appearance Cloudy H (Clear) Urine pH 7.5 (5.0-8.0) Ur Specific Rose 1.017 (1.001-1.035) Urine Protein Trace H (Negative) Urine Glucose (UA) 1+ H (Negative) Urine Ketones 2+ H (Negative) Urine Blood Negative (Negative) Urine Nitrite Negative (Negative) Urine Bilirubin Negative (Negative) Urine Urobilinogen <2.0 (<2.0) mg/dL Ur Leukocyte Esterase Negative (Negative) Urine RBC 1 (0-5) /hpf Urine WBC 1 (0-5) /hpf Ur Squamous Epith Cells 1 (0-4) /hpf Amorphous Sediment Rare H (None) /hpf Urine Bacteria Occasional H (None) /hpf Urine Mucus Rare H (None) /hpf Disposition Clinical Impression: Vertigo, Hyponatremia Disposition: ADMITTED IP TO THIS [facility] Time of Disposition: 16:34
[2022-03-29] MEDS ORDERED: MECLIZINE 25 MG TAB PO PRN (16:35)
[2022-03-29] MEDS ORDERED: POTASSIUM CHLORIDE ER 20 MEQ TAB.ER PO STA (17:06)
[2022-03-29] MEDS ORDERED: NALOXONE 0.4 MG/ML 1 ML VIAL IV PRN (17:07)
--- NOTE | 2022-03-29 17:10 | P.HPIM ---
History of Present Illness H&P Date: 03/29/22 Chief Complaint: vertigo Patient is a 82-year-old female with history of hypertension, and atrial fibrillation on Eliquis presenting with sudden onset vertigo. He started about 1 AM in the morning. She claims that she has had one previous bout of similar v ertigo. At that time it took about a day for 2 resolved. She denies any head trauma, more recent hearing loss, ear pain, fevers, or chills. She denies any chest pain, shortness of breath, abdominal pain, urinary or bowel complaints. She is normally independent at home. Able to ambulate without any assistance. She denies any alcohol use, smoking, or illicit drug use. In the ED, her blood pressure was 175/108, respiratory signs were otherwise unremarkable. Her sodium was 128, potassium 3.2. She received IV fluids, and meclizine, and Valium, and Reglan in the ED. Chest x-ray did not show any acute process. CT head did not show any acute process. Patient seen and examined at bedside. Pertinent positives and negatives as discussed in HPI, a complete review of systems was performed and all other systems are negative. Vital signs reviewed General: nontoxic, no distress, appears at stated age Derm: warm, dry Head: atraumatic, normocephalic, symmetric Eyes: EOMI, no lid lag, anicteric sclera, pupils equal round reactive to light ENT: Nose and ears atraumatic Neck: No thyromegaly, supple Mouth: no lip lesion, mucus membranes moist Cardiovascular: S1S2 irreg, no murmur, no edema Lungs: clear to auscultation bilateral, no rhonchi, no rales, no wheeze, no accessory muscle use Abdominal: soft, nontender to palpation, no guarding, no appreciable organomegaly Ext: no gross muscle atrophy, muscle strength muscle strength 5 out of 5 in all 4 extremities, no contractures Neuro: CN II-XII grossly intact Psych: Alert, oriented, appropriate affect Assessment/Plan: Vertigo, likely BPPV -Meclizine 3 times a day when necessary -neurology consulted Mild hyponatremia Hypokalemia -Received IV fluids in the ED -Potassium replete and monitor Hypertension - hold chlorthalidone due to hyponatremia and hypokalemia, will start on lisinopril 10 Atrial fibrillation - Continue home medications The patient is admitted with an anticipated greater than 2 midnight stay for evaluation of vertigo. Surrogate decision-maker: Daughter CODE STATUS: Full code DVT prophylaxis: Eliquis Anticipated discharge date: 03/[address]: Home A total of 50 minutes was spent on the care of this complex patient more than 50% of the time was spent in counseling and care coordination. Past Medical History Past Medical History: Atrial Fibrillation, Eye Disorder, GERD/Reflux, Hypertension, Osteoarthritis (OA) Additional Past Medical History / Comment(s): IBS, bilateral macular degeneration. History of Any Multi-Drug Resistant Organisms: None Reported Past Surgical History: Appendectomy, Back Surgery, Breast Surgery, Cholecystectomy, Hysterectomy, Joint Replacement, Orthopedic Surgery Additional Past Surgical History / Comment(s): ORIF LEFT ANKLE. BREAST BX. RIGHT KNEE REPL. Past Anesthesia/Blood Transfusion Reactions: Postoperative Nausea & Vomiting (P ONV) Past Psychological History: Anxiety Smoking Status: Former smoker Past Alcohol Use History: None Reported Past Drug Use History: None Reported - Past Family History Mother Family Medical History: Coronary Artery Disease (CAD) Brother(s) Family Medical History: Cancer Medications and Allergies Home Medications Medication Instructions Recorded Confirmed Type Apixaban [Eliquis] 5 mg PO BID 02/14/16 03/29/22 History Metoprolol Tartrate 25 mg PO BID 10/01/17 03/29/22 History Omeprazole 40 mg PO AC-BRKFST 10/01/17 03/29/22 History Chlorthalidone [Hygroton] 25 mg PO DAILY 01/08/22 03/29/22 History Multivitamins, Thera [Multivitamin 1 tab PO DAILY 01/08/22 03/29/22 History (formulary)] Nf-Ibgard 1 tab PO DAILY 01/08/22 03/29/22 History Potassium Chloride 10 meq PO DAILY 01/08/22 03/29/22 History Vit C/E/Zn/Coppr/Lutein/Zeaxan 1 tab PO BID 01/08/22 03/29/22 History [Preservision Areds 2 Softgel] Acetaminophen Tab [Tylenol] 1,000 mg PO Q6HR PRN #30 tablet 01/11/22 03/29/22 Rx Cholecalciferol [Vitamin D3 (25 50 mcg PO DAILY 03/29/22 03/29/22 History Mcg = 1000 Iu)] Multivit-Min/Iron/Folic/Lutein 1 tab PO DAILY 03/29/22 03/29/22 History [Centrum Silver Women Tablet] Allergies Allergy/AdvReac Type Severity Reaction Status Date / Time meperidine HCl [From Demerol] Allergy Unknown Verified 03/29/22 14:13 ciprofloxacin AdvReac Nausea & Verified 03/29/22 14:13 Vomiting codeine AdvReac Nausea & Verified 03/29/22 14:13 Vomiting Physical Exam Vitals: Vital Signs Temp Pulse Resp BP Pulse Ox 03/29/22 14:40 61 18 151/87 97 03/29/22 12:21 97.6 F 73 18 175/108 97 Intake and Output 03/29/22 03/29/22 03/29/22 06:59 14:59 22:59 Other: Weight 65.771 kg Results CBC & Chem 7: 03/29/22 13:20 03/29/22 13:20 Labs: Abnormal Lab Results - Last 24 Hours (Table) 03/29/22 03/29/22 Range/Units 13:20 14:42 Sodium 128 L (137-145) mmol/L Potassium 3.2 L (3.5-5.1) mmol/L Chloride 93 L (98-107) mmol/L Creatinine 0.41 L (0.52-1.04) mg/dL Glucose 138 H (74-99) mg/dL Urine Appearance Cloudy H (Clear) Urine Protein Trace H (Negative) Urine Glucose (UA) 1+ H (Negative) Urine Ketones 2+ H (Negative) Amorphous Sediment Rare H (None) /hpf Urine Bacteria Occasional H (None) /hpf Urine Mucus Rare H (None) /hpf
[2022-03-29] MEDS: lisinopriL 10 MG TAB PO SCH (17:40)
[2022-03-29] MEDS: APIXABAN 5 MG TAB PO SCH (19:50)
[2022-03-29] MEDS: METOPROLOL TARTRATE 25 MG TAB PO SCH (22:32)
[2022-03-30] MEDS: PANTOPRAZOLE 40 MG TABLET PO SCH (06:11)
[2022-03-30 06:32] LABS: African American GFR (CKD) >90 (>60 ml/min/1.73 sqM); Anion Gap 4 mmol/L; Blood Urea Nitrogen 9 mg/dL (7-17); Calcium 9.8 mg/dL (8.4-10.2); Carbon Dioxide 30 mmol/L (22-30); Chloride 93 mmol/L (98-107); Glucose 115 mg/dL (74-99); Magnesium 1.7 mg/dL (1.6-2.3); Non-African American GFR(CKD) >90 (>60 ml/min/1.73 sqM); Potassium 3.3 mmol/L (3.5-5.1); Sodium 127 mmol/L (137-145)
[2022-03-30] MEDS ORDERED: POTASSIUM CHLORIDE ER 20 MEQ TAB.ER PO STA (08:08)
[2022-03-30] MEDS: lisinopriL 10 MG TAB PO SCH (08:21)
[2022-03-30] MEDS: APIXABAN 5 MG TAB PO SCH ×2 (08:21→21:08)
[2022-03-30] MEDS: METOPROLOL TARTRATE 25 MG TAB PO SCH ×2 (08:21→21:09)
[2022-03-30 10:11] LABS: T4, Free (Free Thyroxine) 1.48 ng/dL (0.78-2.19)
--- NOTE | 2022-03-30 10:48 | P.PN ---
Subjective Progress Note Date: 03/30/22 Principal diagnosis: dizzy Hospital Course: Patient is a 82-year-old female with history of hypertension, and atrial fibrillation on Eliquis presenting with sudden onset vertigo. He started about 1 AM in the morning. She claims that she has had one previous bout of similar vertigo. At that time it took about a day for 2 resolved. She denies any head trauma, more recent hearing loss, ear pain, fevers, or chills. In the ED, her blood pressure was 175/108, respiratory signs were otherwise unremarkable. Her sodium was 128, potassium 3.2. She received IV fluids, and meclizine, and Valium, and Reglan in the ED. Chest x-ray did not show any acute process. CT head did not show any acute process. Subjective: Patient seen and examined at bedside. No acute events overnight. He claims that her dizziness has improved. She denies any chest pain, shortness of breath, abdominal pain, urinary or bowel complaints. Pertinent positives and negatives as discussed above, a complete review of systems was performed and all other systems are negative. Vitals Signs Reviewed. General: nontoxic, no distress, appears at stated age Derm: warm, dry Head: atraumatic, normocephalic, symmetric Eyes: EOMI, no lid lag, anicteric sclera, pupils equal round reactive to light ENT: Nose and ears atraumatic Neck: No thyromegaly, supple Mouth: no lip lesion, mucus membranes moist Cardiovascular: S1S2 irreg, no murmur, no edema Lungs: clear to auscultation bilateral, no rhonchi, no rales, no wheeze, no accessory muscle use Abdominal: soft, nontender to palpation, no guarding, no appreciable organomegaly Ext: no gross muscle atrophy, muscle strength muscle strength 5 out of 5 in all 4 extremities, no contractures Neuro: CN II-XII grossly intact, no nystagmus noted Psych: Alert, oriented, appropriate affect Assessment and Plan: Vertigo, likely BPPV -Meclizine 3 times a day when necessary -neurology consulted Mild hyponatremia -Appears euvolemic -TSH elevated, free T4 -IV fluids worsened sodium -Urine studies pending Hypokalemia -Potassium replete and monitor Hypertension - hold chlorthalidone due to hyponatremia and hypokalemia, will start on lisinopril 10 Atrial fibrillation - Continue home medications DVT ppx: Eliquis Code status: Full code Anticipated discharge place: Home Anticipated discharge time: 1- 2 days Objective - Vital Signs Vital signs: Vital Signs Temp 98.2 F 03/30/22 08:00 Pulse 78 03/30/22 08:00 Resp 18 03/30/22 08:00 BP 137/59 03/30/22 08:00 Pulse Ox 99 03/30/22 08:00 FiO2 Intake & Output 03/29/22 03/30/22 03/30/22 18:59 06:59 18:59 Intake Total 150 Output Total 500 Balance -350 Weight 65.771 kg 65.771 kg Intake: IV 75 Sodium Chloride 0.9% 1, 75 000 ml @ 75 mls/hr IV . [id number] ONE Rx#:[id number] Intake, IV Titration 75 Amount Sodium Chloride 0.9% 1, 75 000 ml @ 75 mls/hr IV . [id number] ONE Rx#:[id number] Output: Urine 500 Other: Voiding Method Bedpan # Voids 1 1 - Labs CBC & Chem 7: 03/29/22 13:20 03/30/22 05:53 Labs: Abnormal Lab Results - Last 24 Hours (Table) 03/29/22 03/29/22 03/30/22 Range/Units 13:20 14:42 05:53 Sodium 128 L 127 L (137-145) mmol/L Potassium 3.2 L 3.3 L (3.5-5.1) mmol/L Chloride 93 L 93 L (98-107) mmol/L Creatinine 0.41 L 0.38 L (0.52-1.04) mg/dL Glucose 138 H 115 H (74-99) mg/dL Osmolality (280-301) mosm/kg TSH (0.465-4.680) mIU/L Urine Appearance Cloudy H (Clear) Urine Protein Trace H (Negative) Urine Glucose (UA) 1+ H (Negative) Urine Ketones 2+ H (Negative) Amorphous Sediment Rare H (None) /hpf Urine Bacteria Occasional H (None) /hpf Urine Mucus Rare H (None) /hpf 03/30/22 Range/Units 05:53 Sodium (137-145) mmol/L Potassium (3.5-5.1) mmol/L Chloride (98-107) mmol/L Creatinine (0.52-1.04) mg/dL Glucose (74-99) mg/dL Osmolality 266 L (280-301) mosm/kg TSH 10.800 H (0.465-4.680) mIU/L Urine Appearance (Clear) Urine Protein (Negative) Urine Glucose (UA) (Negative) Urine Ketones (Negative) Amorphous Sediment (None) /hpf Urine Bacteria (None) /hpf Urine Mucus (None) /hpf
--- NOTE | 2022-03-30 12:18 | P.CNNES ---
History of Present Illness Consult date: 03/30/22 Requesting physician: Rikki Traylor Reason for Consult: veritgo History of Present Illness: This is an 82-year-old woman with history of atrial fibrillation on eliquis with sudden onset vertigo. Patient stated that the she woke up around 1 AM on 03/29/2022 from bed and she noticed she is very dizzy. She feels dizziness is worse with movement and any head position and not alleviated with rest and she feels the room is spinning. She denies any recent infection and he had trauma. Any nausea any vomiting. She has chronic hearing loss. Denies any focal weakness. She is compliant taking her eliquis for atrial fibrillation. She feels slightly better today compared to yesterday. Some of the workup during his hospital visit consisted of: CBC with differential is unremarkable Sodium is 128 and repeat is 127 initial serum glucose 138. TSH is 10.080 and the free T4 is 1.48 Calcium is within normal limits CT of the head is reported as age-related atrophy can the chronic small vessel ischemic changes without acute intracranial process seen at this time. I reviewed the CT of the head and I do not appreciate any acute or subacute ischemia and there is no mass effect. EKG is reported as atrial fibrillation. Review of Systems Review of system: The 12 point system was reviewed and apparent positive and negative per HPI. Past Medical History Past Medical History: Atrial Fibrillation, Eye Disorder, GERD/Reflux, Hypert ension, Osteoarthritis (OA) Additional Past Medical History / Comment(s): IBS, bilateral macular degeneration. History of Any Multi-Drug Resistant Organisms: None Reported Past Surgical History: Appendectomy, Back Surgery, Breast Surgery, Cholecystectomy, Hysterectomy, Joint Replacement, Orthopedic Surgery Additional Past Surgical History / Comment(s): ORIF LEFT ANKLE. BREAST BX. RIGHT KNEE REPL. Past Anesthesia/Blood Transfusion Reactions: Postoperative Nausea & Vomiting (PONV) Past Psychological History: Anxiety Smoking Status: Former smoker Past Alcohol Use History: None Reported Additional Past Alcohol Use History / Comment(s): Quit smoking 50 yrs ago, smoked for 20 yrs. Past Drug Use History: None Reported - Past Family History Mother Family Medical History: Coronary Artery Disease (CAD) Brother(s) Family Medical History: Cancer Medications and Allergies Home Medications Medication Instructions Recorded Confirmed Type Apixaban [Eliquis] 5 mg PO BID 02/14/16 03/29/22 History Metoprolol Tartrate 25 mg PO BID 10/01/17 03/29/22 History Omeprazole 40 mg PO AC-BRKFST 10/01/17 03/29/22 History Chlorthalidone [Hygroton] 25 mg PO DAILY 01/08/22 03/29/22 History Multivitamins, Thera [Multivitamin 1 tab PO DAILY 01/08/22 03/29/22 History (formulary)] Nf-Ibgard 1 tab PO DAILY 01/08/22 03/29/22 History Potassium Chloride 10 meq PO DAILY 01/08/22 03/29/22 History Vit C/E/Zn/Coppr/Lutein/Zeaxan 1 tab PO BID 01/08/22 03/29/22 History [Preservision Areds 2 Softgel] Acetaminophen Tab [Tylenol] 1,000 mg PO Q6HR PRN #30 tablet 01/11/22 03/29/22 Rx Cholecalciferol [Vitamin D3 (25 50 mcg PO DAILY 03/29/22 03/29/22 History Mcg = 1000 Iu)] Multivit-Min/Iron/Folic/Lutein 1 tab PO DAILY 03/29/22 03/29/22 History [Centrum Silver Women Tablet] Allergies Allergy/AdvReac Type Severity Reaction Status Date / Time meperidine HCl [From Demerol] Allergy Unknown Verified 03/29/22 14:13 ciprofloxacin AdvReac Nausea & Verified 03/29/22 14:13 Vomiting codeine AdvReac Nausea & Verified 03/29/22 14:13 Vomiting Physical Examination - Vital Signs Vital Signs: Vital Signs Temp Pulse Pulse Resp BP BP Pulse Ox 03/30/22 08:00 98.2 F 78 18 137/59 99 03/30/22 03:48 53 L 18 125/66 03/30/22 00:00 57 L 19 121/64 98 03/29/22 20:00 97.6 F 53 L 18 139/81 98 03/29/22 17:54 56 L 18 148/76 96 03/29/22 14:40 61 18 151/87 97 03/29/22 12:21 97.6 F 73 18 175/108 97 Intake and Output 03/29/22 03/30/22 03/30/22 22:59 06:59 14:59 Intake Total 150 Output Total 500 Balance -350 Intake: IV 75 Sodium Chloride 0.9% 1, 75 000 ml @ 75 mls/hr IV . [id number] ONE Rx#:[id number] Intake, IV Titration 75 Amount Sodium Chloride 0.9% 1, 75 000 ml @ 75 mls/hr IV . [id number] ONE Rx#:[id number] Output: Urine 500 Other: Voiding Method Bedpan # Voids 1 1 Weight 65.771 kg GENERAL: The patient is lying in bed and is not in acute distress. CHEST: The heart rate is regular rate rhythm. No murmurs to auscultation. LUNG: Clear to auscultation bilaterally no wheezing noted throughout. Not labored breathing. ABDOMEN/GI: Bowel sounds present in all 4 quadrants. No tenderness to palpation throughout. NEUROLOGICAL: Higher mental function: The patient is awake, alert, oriented to self, place and time. Patient is following commands. No aphasia and no neglect. Cranial nerves: The pupils are round, equal and reactive to light and ac commodation. Visual whitaker are full to confrontation throughout. Extraocular movement is intact no nystagmus is noted. Facial sensation is normal to touch throughout. The facial strength is normal throughout. Hearing is moderately decreased bilaterally to hand rub. Tongue is midline and moved [id number] without any difficulty. No dysarthria is noted. Shoulder shrug is normal bilaterally. Motor: The strength is 5 over 5 throughout. Normal tone and bulk. Cerebellum: Normal finger to nose I feel there is subtle past pointing bilaterally initially and was repeated twice and same finding and then improves. Sensation: Sensation is normal to touch throughout. Reflexes (right/left): 1+ throughout Plantars are downgoing bilaterally. Results - Laboratory Findings CBC and BMP: 03/29/22 13:20 03/30/22 05:53 Abnormal Lab Findings: Abnormal Labs 03/29/22 03/29/22 03/30/22 13:20 14:42 05:53 Sodium 128 L 127 L Potassium 3.2 L 3.3 L Chloride 93 L 93 L Creatinine 0.41 L 0.38 L Glucose 138 H 115 H Osmolality TSH Urine Appearance Cloudy H Urine Protein Trace H Urine Glucose (UA) 1+ H Urine Ketones 2+ H Amorphous Sediment Rare H Urine Bacteria Occasional H Urine Mucus Rare H 03/30/22 05:53 Sodium Potassium Chloride Creatinine Glucose Osmolality 266 L TSH 10.800 H Urine Appearance Urine Protein Urine Glucose (UA) Urine Ketones Amorphous Sediment Urine Bacteria Urine Mucus Assessment and Plan Assessment: Acute vertigo: Rule out central cause (such as stroke) since has ?past pointing with finger to nose. Atrial fibrillation on eliquis Hyponatremia Plan: I ordered MRI of the brain with and without to rule out any central cause. If she does have stroke will get rest of stroke work-up (CTA head and neck, echo, lipid panel). Patient is on meclizine 25 mg 1 tablet at 3 times a day when necessary and I changed to scheduled. Patient home eliquis is resumed 5mg 1 tab bid. Q4 hour neuro checks. Consulted PT and OT. Ordered orthostatic vitals. If MRI Brain is negative and negative orthostatic and patient continues to have vertigo then recommend to follow-up with ENT as outpatient and consider vestibular rehab as outpatient. Will defer the rest of medical management to primary team. The plan is discussed with patient and primary team. Thank you for the consultation. Dr. Patterson will start neurology service tomorrow A.M. then Dr. Manuel will resume service Saturday A.M. Time with Patient: Greater than 30
[2022-03-30] MEDS: MECLIZINE 25 MG TAB PO SCH ×2 (16:18→21:08)
[2022-03-30 19:45] VITALS: RESP 16
[2022-03-31 05:23] VITALS: BP 127/69; PULSE 75; TEMP 98.3
[2022-03-31] MEDS: PANTOPRAZOLE 40 MG TABLET PO SCH (08:09)
[2022-03-31] MEDS: METOPROLOL TARTRATE 25 MG TAB PO SCH (08:09)
[2022-03-31] MEDS: MECLIZINE 25 MG TAB PO SCH (08:09)
[2022-03-31] MEDS: APIXABAN 5 MG TAB PO SCH (08:09)
[2022-03-31] MEDS: lisinopriL 10 MG TAB PO SCH (08:09)
--- NOTE | 2022-03-31 11:12 | P.PN ---
Subjective Progress Note Date: 03/31/22 Principal diagnosis: dizzy Hospital Course: Patient is a 82-year-old female with history of hypertension, and atrial fibrillation on Eliquis presenting with sudden onset vertigo. He started about 1 AM in the morning. She claims that she has had one previous bout of similar vertigo. At that time it took about a day for 2 resolved. She denies any head trauma, more recent hearing loss, ear pain, fevers, or chills. In the ED, her blood pressure was 175/108, respiratory signs were otherwise unremarkable. Her sodium was 128, potassium 3.2. She received IV fluids, and meclizine, and Valium, and Reglan in the ED. Chest x-ray did not show any acute process. CT head did not show any acute process. Pending MRI per neurology. Subjective: Patient seen and examined at bedside. No acute events overnight. He claims that her dizziness has resolved. She denies any chest pain, shortness of breath, abdominal pain, urinary or bowel complaints. Pertinent positives and negatives as discussed above, a complete review of systems was performed and all other systems are negative. Vitals Signs Reviewed. General: nontoxic, no distress, appears at stated age Derm: warm, dry Head: atraumatic, normocephalic, symmetric Eyes: EOMI, no lid lag, anicteric sclera, pupils equal round reactive to light ENT: Nose and ears atraumatic Neck: No thyromegaly, supple Mouth: no lip lesion, mucus membranes moist Cardiovascular: S1S2 irreg, no murmur, no edema Lungs: clear to auscultation bilateral, no rhonchi, no rales, no wheeze, no accessory muscle use Abdominal: soft, nontender to palpation, no guarding, no appreciable organomegaly Ext: no gross muscle atrophy, muscle strength muscle strength 5 out of 5 in all 4 extremities, no contractures Neuro: CN II-XII grossly intact, no nystagmus noted Psych: Alert, oriented, appropriate affect Assessment and Plan: Vertigo, likely BPPV - now resolved -Meclizine 3 times a day when necessary -neurology consulted - concern for a central cause, will need MRI Mild hyponatremia -Appears euvolemic -TSH elevated, free T4 -IV fluids worsened sodium -Urine studies pending - BMP pending Hypokalemia -Potassium replete and monitor Hypertension - hold chlorthalidone due to hyponatremia and hypokalemia, started on lisinopril 10 Atrial fibrillation - Continue home medications DVT ppx: Eliquis Code status: Full code Anticipated discharge place: Home Anticipated discharge time: 1- 2 days Objective - Vital Signs Vital signs: Vital Signs Temp 98.3 F 03/31/22 05:00 Pulse 75 03/31/22 05:00 Resp 16 03/31/22 05:00 BP 127/69 03/31/22 05:00 Pulse Ox 98 03/31/22 09:28 FiO2 21 03/31/22 09:28 Intake & Output 03/30/22 03/31/22 03/31/22 18:59 06:59 18:59 Other: Voiding Method Toilet # Voids 1 - Labs CBC & Chem 7: 03/29/22 13:20 03/30/22 05:53
[2022-03-31 12:21] LABS: African American GFR (CKD) >90 (>60 ml/min/1.73 sqM); Anion Gap 3 mmol/L; Blood Urea Nitrogen 11 mg/dL (7-17); Carbon Dioxide 31 mmol/L (22-30); Chloride 92 mmol/L (98-107); Glucose 126 mg/dL (74-99); Non-African American GFR(CKD) 90 (>60 ml/min/1.73 sqM); Potassium 3.6 mmol/L (3.5-5.1); Sodium 126 mmol/L (137-145)
--- NOTE | 2022-03-31 13:55 | P.DS ---
Providers Date of admission: 03/29/22 16:34 Expected date of discharge: 03/31/22 Attending physician: Alice Landis MD Consults: 03/29/22 16:34 Consult Physician Urgent Consulting Provider: Thor Son Consult Reason/Comments: Vertigo Do you want consulting provider notified?: Yes Primary care physician: Yonas Ramirez MD Hospital Course: Discharge Diagnosis: Vertigo, likely BPPV Mild hyponatremia Hypothyroidism Hypokalemia Hypertension Atrial fibrillation Hospital Course: Patient is a 82-year-old female with history of hypertension, and atrial fibrillation on Eliquis presenting with sudden onset vertigo. He started about 1 AM in the morning. She claims that she has had one previous bout of similar vertigo. At that time it took about a day for 2 resolved. She denies any head trauma, more recent hearing loss, ear pain, fevers, or chills. In the ED, her blood pressure was 175/108, respiratory signs were otherwise unremarkable. Her sodium was 128, potassium 3.2. She received IV fluids, and meclizine, and Valium, and Reglan in the ED. Chest x-ray did not show any acute process. CT head did not show any acute process. Neurology was consulted. Initially there was concern for central vertigo, however patient has no nystagmus or any cerebellar dysfunction concerning for central vertigo. She can get an MRI brain with and without contrast as well as neurology follow-up as an outpatient. Vertigo resolved at discharge. With regards to her hypertension, thiazide was discontinued, she was started on MARI inhibitor. She had an elevated TSH, normal free T4, likely the cause of hyponatremia. She appears euvolemic on exam. Potassium was repleted while at the hospital. She should have a repeat BMP in 1 week. Patient seen and examined at bedside.[] Vital signs reviewed and stable. General: nontoxic, no distress, appears at stated age Derm: warm, dry Head: atraumatic, normocephalic, symmetric Eyes: EOMI, no lid lag, anicteric sclera, pupils equal round reactive to light ENT: Nose and ears atraumatic Neck: No thyromegaly, supple Mouth: no lip lesion, mucus membranes moist Cardiovascular: S1S2 irreg, no murmur, no edema Lungs: clear to auscultation bilateral, no rhonchi, no rales, no wheeze, no accessory muscle use Abdominal: soft, nontender to palpation, no guarding, no appreciable organomegaly Ext: no gross muscle atrophy, muscle strength muscle strength 5 out of 5 in all 4 extremities, no contractures Neuro: CN II-XII grossly intact, no nystagmus noted Psych: Alert, oriented, appropriate affect A total of 37 minutes of time were spent preparing this complex discharge summary. Patient was discharged on 03/31/22 at 13:33. Patient Condition at Discharge: Stable Plan - Discharge Summary Discharge Rx Participant: No New Discharge Prescriptions: New lisinopriL [Zestril] 10 mg PO DAILY #30 tab Continue Apixaban [Eliquis] 5 mg PO BID Metoprolol Tartrate 25 mg PO BID Omeprazole 40 mg PO AC-BRKFST Multivitamins, Thera [Multivitamin (formulary)] 1 tab PO DAILY Nf-Ibgard 1 tab PO DAILY Acetaminophen Tab [Tylenol] 1,000 mg PO Q6HR PRN #30 tablet PRN Reason: Pain Vit C/E/Zn/Coppr/Lutein/Zeaxan [Preservision Areds 2 Softgel] 1 tab PO BID Cholecalciferol [Vitamin D3 (25 Mcg = 1000 Iu)] 50 mcg PO DAILY Multivit-Min/Iron/Folic/Lutein [Centrum Silver Women Tablet] 1 tab PO DAILY Discontinued Potassium Chloride 10 meq PO DAILY Chlorthalidone [Hygroton] 25 mg PO DAILY Discharge Medication List Apixaban [Eliquis] 5 mg PO BID 02/14/16 [History] Metoprolol Tartrate 25 mg PO BID 10/01/17 [History] Omeprazole 40 mg PO AC-BRKFST 10/01/17 [History] Multivitamins, Thera [Multivitamin (formulary)] 1 tab PO DAILY 01/08/22 [History] Nf-Ibgard 1 tab PO DAILY 01/08/22 [History] Vit C/E/Zn/Coppr/Lutein/Zeaxan [Preservision Areds 2 Softgel] 1 tab PO BID 01/08/22 [History] Acetaminophen Tab [Tylenol] 1,000 mg PO Q6HR PRN #30 tablet 01/11/22 [Rx] Cholecalciferol [Vitamin D3 (25 Mcg = 1000 Iu)] 50 mcg PO DAILY 03/29/22 [History] Multivit-Min/Iron/Folic/Lutein [Centrum Silver Women Tablet] 1 tab PO DAILY 03/29/22 [History] lisinopriL [Zestril] 10 mg PO DAILY #30 tab 03/31/22 [Rx] Follow up Appointment(s)/Referral(s): Rosey Pena MD [REFERRING] - 1 Week Yonas Ramirez MD [Primary Care Provider] - 1-2 days Patient Instructions/Handouts: Vertigo (DC) Activity/Diet/Wound Care/Special Instructions: Please see your PCP in 1-2 days. Please see Neurology as soon as possible. You will also need to get an MRI of your brain to assess for other causes of vertigo. Discharge Disposition: HOME SELF-CARE
--- NOTE | 2022-04-01 02:53 | MR ---
EXAMINATION TYPE: MR brain and iac wo/w con DATE OF EXAM: 03/31/2022 COMPARISON: None HISTORY: Vertigo, stroke, attn IAC CONTRAST: Standard multiplanar, multisequence MRI departmental protocol images were obtained without contrast a nd with 6 mL intravenous Gadavist gadolinium contrast. Multifocal multi echo imaging of the brain and posterior fossa performed without and with the IV cont rast. There is diffuse moderate cerebral cortical atrophy. Diffusion images show no sign of an acute infarc t. There is no mass effect or midline shift. No sign of intracranial hemorrhage. Corpus callosum is i ntact. The brainstem is intact. On the T2 and FLAIR images there is multifocal increased signal in the periv entricular white matter with coalescent areas measure up to 1.5 cm. Total number of lesions is more t avelar 25. There is a single 6 mm focus of increased signal in the white matter of the right cerebellar hemisphere. The sella turcica is normal. No evidence of orbital mass. The contrast images show no pathologic enhancement. There is normal enhancement of the venous sinuses . The internal auditory canals appear normal. The acoustic nerve and vestibular nerve appear normal. No evidence of cerebellopontine angle mass. The remainder of the exam is unremarkable. IMPRESSION: Cerebral atrophy. Extensive white matter signal changes likely related to microvascular ischemia. Dem yelinating disease also possible. No evidence of focal posterior fossa abnormality of the internal auditory canals. There is single foc us of white matter disease in the right cerebellar hemisphere.
== END 2022-03-31 15:20 | disposition home or self-care (01) | DRG 149 ==
LOC: EC 12:19 → 3SCARD 16:34 → 5NMEDONC 03-30 10:49
PROVIDERS: ADMIT Internal Medicine; ATTEND Internal Medicine
DX: H81.10 Benign paroxysmal vertigo, unspecified ear (principal); E87.1 Hypo-osmolality and hyponatremia; E03.9 Hypothyroidism, unspecified; E87.6 Hypokalemia; K58.9 Irritable bowel syndrome, unspecified; F41.9 Anxiety disorder, unspecified; H91.90 Unspecified hearing loss, unspecified ear; I10 Essential (primary) hypertension; I48.91 Unspecified atrial fibrillation; Z79.01 Long term (current) use of anticoagulants; Z79.899 Other long term (current) drug therapy; Z82.49 Family history of ischemic heart disease and other diseases of the circulatory system; Z87.891 Personal history of nicotine dependence; Z88.1 Allergy status to other antibiotic agents; Z88.5 Allergy status to narcotic agent; H35.30 Unspecified macular degeneration
CPT/HCPCS: 36415; 70450; 70553; 71046; 80048; 80053; 81001; 83735; 83930; 84439; 84443; 84484; 85025; 85610; 85730; 93005; 94760; 96374; 96375; 99285

== ENCOUNTER → 2022-08-29 | Outpatient (CLI) | payer MEDICARE, BC ==
--- NOTE | 2022-08-29 13:15 | US ---
EXAMINATION TYPE: US extremity nonvasc mass LT DATE OF EXAM: 08/29/2022 COMPARISON: NONE CLINICAL INDICATION: Female, 82 years old with history of R22.32 LOCALIZED SWELLING, MASS AND LUMP, L EFT UPP; swelling left upper arm. TECHNIQUE: Multiple grayscale ultrasound images of the left upper arm with comparison images of the right upper arm were performed. FINDINGS/IMPRESSION: Scan upper left arm no abnormalities seen. No solid or cystic mass identified. No evidence for fluid collection.
== END | disposition home or self-care (01) ==
LOC: RADUSWWP 12:47
PROVIDERS: ATTEND Family Medicine
DX: R22.32 Localized swelling, mass and lump, left upper limb (principal)

== ENCOUNTER → 2023-11-22 | Outpatient (CLI) | payer MEDICARE, OTHER ==
--- NOTE | 2023-11-22 12:25 | US ---
EXAMINATION TYPE: US abdomen complete DATE OF EXAM: 11/22/2023 COMPARISON: CT thoracoabdominal pelvis aorta 03/12/2015 CLINICAL INDICATION: Female, 83 years old with history of R74.8 Elevated alkaline phosphatase level; ALP TECHNIQUE: Multiple sonographic images of the abdomen are obtained. FINDINGS: EXAM MEASUREMENTS: Liver Length: 13.4 cm Gallbladder Wall: Surgically absent CBD: 1.1 cm Spleen: 7.6 cm Right Kidney: 10.0x4.2x4.6 cm Left Kidney: 10.3x4.1x5.8 cm SCRAP BALLER NOTES: Pancreas: duct dilated to 3mm, tail obscured by gas Liver: heterogenous, Periportal hyperechogenicity ?pneumobilia vs. other?, large hepatic veins and d ilated IVC ?increased right atrial pressure? Gallbladder: Surgically absent CBD: enlarged Spleen: wnl Right Kidney: No hydronephrosis or masses seen Left Kidney: No hydronephrosis or masses seen Upper IVC: enlarged Abd Aorta: Obscured by overlying bowel gas Dilated common bile duct which likely normal status post cholecystectomy. Stable from prior CT. Marke d pneumobilia demonstrated. Liver is diffusely heterogenous without focal lesion identified. The vis ualized portions of the pancreas are homogenous. The spleen is unremarkable. Kidneys are symmetric and free of hydronephrosis. No renal lesions are seen. Large hepatic veins are dilated IVC. The aorta is obscured by overlying bowel gas. The pancreatic isadora t is mildly enlarged measuring up to 3 mm in the body. IMPRESSION: 1. Stable dilated common bile duct status post cholecystectomy dating back to 2014. 2. Pneumobilia. 3. Dilated hepatic veins and IVC. Correlate for right heart dysfunction.
[2023-11-22 17:29] LABS: % Iron Saturation 28.03 (12.00-45.00)
== END | disposition home or self-care (01) ==
LOC: RADUSWWP 07:45
PROVIDERS: ATTEND Family Medicine
DX: K83.8 Other specified diseases of biliary tract (principal); K76.5 Hepatic veno-occlusive disease; R74.8 Abnormal levels of other serum enzymes; R71.8 Other abnormality of red blood cells; Z90.49 Acquired absence of other specified parts of digestive tract
CPT/HCPCS: 76700; 82306; 82607; 82728; 82746; 83540; 83550; 84466

== ENCOUNTER → 2024-04-13 | Day surgery (SDC) | payer MEDICARE, OTHER ==
[2024-04-10 09:49] VITALS: BMI 22.6
[~2024-04-13] MED LIST changes: -ACETAMINOPHEN TAB 500 MG TAB PO PRN; -DEXAMETHASONE SOD PHOSPHATE 4 MG/ML 1 ML VIAL IV ONE; -HEPARIN SODIUM,PORCINE/PF 5,000 UNIT/0.5 ML SYRINGE SQ PRN; +LIDOCAINE 1% INJ 10MG/ML (20 ML MDV) ONE; -ONDANSETRON 4 MG/2 ML VIAL IVP ONE; +PROPOFOL 10 MG/ML 20 ML VIAL IV ONE; -Pre Op ABX Message 1 EACH MISC MISCELLANE ONE
[2024-04-13 15:17] VITALS: RESP 16; TEMP 98.6
[2024-04-13] MEDS: LIDOCAINE 1% (10MG/ML) FOR IV START INTRADERMA PRN (15:20)
[2024-04-13] MEDS: LACTATED RINGERS 1,000 ML IV SCH (15:20)
[2024-04-13] MEDS: IV FLUID CONTINUATION 1,000 ML IV ONE (15:20)
[2024-04-13] MEDS: hydrALAZINE HCL 20 MG/ML 1 ML VIAL IVP STA (15:34)
--- NOTE | 2024-04-13 16:23 | P.OP ---
Date of Procedure: 04/13/24 Preoperative Diagnosis: Dysphagia Postoperative Diagnosis: Antral gastritis Small sliding hiatal hernia Esophagitis Procedure(s) Performed: EGD Anesthesia: MAC Surgeon: Corbin Medrano Pathology: other (Antrum, esophagus) Condition: stable Disposition: PACU Description of Procedure: The patient was placed on the endoscopy table in the lateral position. She received IV sedation. The gas was placed oropharynx passed in the esophagus and the stomach. Scope was then placed through the pylorus. The first and second portion of the duodenum appeared normal. The scope was then brought back to the antrum this appeared mildly Flaim. A biopsy performed. The scope was then retroflexed and the Mainer of the stomach appeared normal. The GE junction was at 38 cm. There was a small sliding hiatal hernia. The distal esophagus and mildly Flaim. A biopsy performed. The proximal esophagus appeared normal. Scope was withdrawn from patient.
[2024-04-13 16:53] VITALS: BP 174/92; PULSE 79
== END ==
LOC: ORWHC2ENDO 13:54
PROVIDERS: ATTEND Surgery
DX: K29.50 Unspecified chronic gastritis without bleeding (principal); K21.00 Gastro-esophageal reflux disease with esophagitis, without bleeding; K44.9 Diaphragmatic hernia without obstruction or gangrene; K58.9 Irritable bowel syndrome, unspecified; I48.91 Unspecified atrial fibrillation; I10 Essential (primary) hypertension; E07.9 Disorder of thyroid, unspecified; Z79.890 Hormone replacement therapy; Z79.01 Long term (current) use of anticoagulants; Z79.899 Other long term (current) drug therapy; Z87.891 Personal history of nicotine dependence; Z88.1 Allergy status to other antibiotic agents; Z88.5 Allergy status to narcotic agent; Z88.8 Allergy status to other drugs, medicaments and biological substances
CPT/HCPCS: 88305; 43239; J0360; J2003; J2704

== ENCOUNTER → 2024-04-29 | Outpatient (CLI) | payer MEDICARE, OTHER ==
--- NOTE | 2024-04-29 10:44 | FL ---
EXAMINATION TYPE: FL UGI air w esophagus DATE OF EXAM: 04/29/2024 10:16 AM COMPARISON: 11/22/2023, 03/29/2022 CLINICAL INDICATION:Female, 84 years old with history of R13.19 DYSPHAGIA; TECHNIQUE: The procedure was explained and patient history elicited. All patient questions were ans wered prior to start of procedure. A refrigeration person radiograph of the abdomen was also reviewed. Multiple flu oroscopic spot images of the esophagus, stomach and duodenum were obtained following ingestion of liq uid barium and EZ-gas crystals. Fluoroscopic time:1 min Fluoroscopic images:0 Radiographs taken: 123 DAP: No reported mGym2 FINDINGS: The esophagus demonstrates normal primary and secondary peristalsis. Tertiary contractions are seen w ith delayed emptying of the esophageal contents. The esophageal mucosa is smooth without evidence of focal stricture, ulceration, or abnormal outpouching. No gastroesophageal reflux disease was identif ied. The stomach and duodenum demonstrate a normal course and contour. There is no evidence of focal jessica savanna or duodenal ulceration, stricture, or abnormal outpouching. IMPRESSION: Esophageal dysmotility. [facility], , 04/29/2024 10:42 AM
== END | disposition home or self-care (01) ==
LOC: RADFLMAIN 09:08
PROVIDERS: ATTEND Surgery
DX: K22.4 Dyskinesia of esophagus (principal); R13.19 Other dysphagia
CPT/HCPCS: 74246